=== PATIENT | male | born 1950 | race Asian ===

== ENCOUNTER 2017-11-19 07:21 | Day surgery (SDC) | payer OTHER, BC ==
[2017-11-18 11:52] VITALS: BMI 21.9
[2017-11-19] MEDS: CYCLOPENTOLATE 2% OPHTH SOLN 2 ML BOTTLE ONE ×3 (08:40→08:50)
[2017-11-19] MEDS: PHENYLEPHRINE 2.5% OPHTH SOLN 15 ML BOTTLE ONE ×3 (08:40→08:50)
[2017-11-19] MEDS: CIPROFLOXACIN 0.3% EYE DROPS 5 ML BOTTLE ONE ×3 (08:40→08:50)
[2017-11-19] MEDS: TROPICAMIDE 1% OPHTH SOLN 15 ML BOTTLE ONE ×3 (08:40→08:50)
[2017-11-19 08:46] VITALS: TEMP 97.7
[2017-11-19] MEDS ORDERED: NEO/POLYMYX B SULF/DEXAMETH OPHTHALMIC 5ML BOTTLE ONE (09:45)
[2017-11-19] MEDS ORDERED: CARBACHOL 0.01% INTRA-OCULAR 1.5 ML VIAL ONE (09:45)
[2017-11-19] MEDS ORDERED: MIDAZOLAM HCL 2 MG/2 ML SINGLE DOSE VIAL ONE (09:45)
[2017-11-19] MEDS ORDERED: BSS (NA/CA/MG/K) BALANCED SALT SOLUTION OPHTH SOLN 15 ML BOTTLE ONE (09:45)
[2017-11-19 11:08] VITALS: BP 135/75; PULSE 69
--- NOTE | 2017-11-19 11:46 | OP ---
DATE OF OPERATION: 11/19/2017 OPERATIVE PROCEDURE: Lens Phacoemulsification with Posterior Chamber Intraocular Lens Placement, Right Eye PREOPERATIVE DIAGNOSIS: Visually Significant Cataract of Right Eye POSTOPERATIVE DIAGNOSIS: Visually Significant Cataract of Right Eye SURGEON: Sonu Londono M.D. ANESTHESIA: MAC ANESTHESIOLOGIST: PROCEDURE: The patient was brought to the operating room and placed under monitored anesthesia care by Anesthesia. A drop of Tetracaine was then placed over the right eye. The patient was then prepped and draped in the usual sterile manner. A speculum was then placed over the right eye. The eye was then well irrigated with copious amounts of BSS (balanced salt solution). The operating microscope was then moved into position. A paracentesis was performed using a 15 degree blade. At this point 0.5 mL of 1% preservative free-lidocaine was injected into the anterior chamber. Amvisc plus was then injected into the anterior chamber. A clear corneal incision was then formed using a 2.2 mm keratome. A capsulorrhexis was then performed in a continuous circular fashion beginning with a cystotome completed with an Utratas forceps. Hydrodissection was then performed using BSS on a cannula. The phaco probe was then introduced through the corneal wound and the cataract was removed using the phaco chop technique. Approximately 3 seconds of absolute phaco time was used. The remaining cortex was then removed using irrigation and aspiration with an I/A probe. The capsule was then filled with regular Amvisc and the capsule was noted to be intact. A previously selected foldable posterior chamber intraocular lens was then injected into the capsule through the corneal wound using a lens injector. It was then dialed into position using a Sinskey hook. The Amvisc was then removed using irrigation and aspiration. Miostat was then injected through the paracentesis to constrict the pupil. The paracentesis and corneal wound were then hydrated and noted to be water tight. A drop of Maxitrol was then placed over the eye. The speculum was removed and clear shield was taped over the eye. The patient tolerated the procedure well and there were no surgical complications. The patient was asked to follow up in my office the next day. SONU LONDONO M.D. PATRICK/[id number]
== END 2017-11-19 11:05 | disposition home or self-care (01) ==
LOC: FASU 07:21
PROVIDERS: ATTEND Ophthalmology
PROC: 08RJ3JZ Replacement of Right Lens with Synthetic Substitute, Percutaneous Approach (ICD-10-PCS; principal; 2017-11-19 10:01)
DX: H26.8 Other specified cataract (principal)

== ENCOUNTER 2021-02-14 04:40 | Day surgery (SDC) | payer OTHER, BC ==
[2021-02-13 17:55] VITALS: BMI 21.1
[2021-02-14] MEDS ORDERED: PROPOFOL 20 ML ONE (12:46)
[2021-02-14] MEDS ORDERED: LIDOCAINE HCL/PF 2% SDV 5ML VIAL ONE (12:46)
[2021-02-14] MEDS ORDERED: MIDAZOLAM HCL 2 MG/2 ML SINGLE DOSE VIAL ONE (12:46)
[2021-02-14] MEDS ORDERED: ROCURONIUM BROMIDE 50 MG/5 ML SYRINGE ONE (12:47)
[2021-02-14] MEDS ORDERED: ONDANSETRON 4 MG/2 ML VIAL IVPUSH PRN (13:40)
[2021-02-14] MEDS ORDERED: oxyCODONE HCL 5 MG TABLET PO PRN (13:40)
[2021-02-14] MEDS ORDERED: LACTATED RINGERS SOLUTION 1,000 ML IV SCH (13:45)
[2021-02-14] MEDS ORDERED: NEOSTIGMINE METHYLSULFATE 0.5 MG/ML - 10 ML MDV ONE (13:45)
[2021-02-14 16:35] VITALS: BP 131/71; PULSE 84; TEMP 98.1
== END 2021-02-14 16:05 | disposition home or self-care (01) ==
LOC: JASU-SURG 04:40
PROVIDERS: ATTEND Internal Medicine
PROC: 0BDF8ZX Extraction of Right Lower Lung Lobe, Via Natural or Artificial Opening Endoscopic, Diagnostic (ICD-10-PCS; 2021-02-14)
PROC: 0BBF8ZX Excision of Right Lower Lung Lobe, Via Natural or Artificial Opening Endoscopic, Diagnostic (ICD-10-PCS; principal; 2021-02-14 13:00)
DX: C34.31 Malignant neoplasm of lower lobe, right bronchus or lung (principal)
CPT/HCPCS: 87070; 87102; 87116; 87186; 87205; 87206; 87210; 88104; 88108; 88305-TC; 94760; C9803; U0003; U0005

== ENCOUNTER 2022-05-01 17:55 | Inpatient (IN) | payer OTHER, BC ==
[2022-05-01 19:27] LABS: BASO % 1.9 % (0-2.0); EOS % 0.9 % (0-4.5); HEMATOCRIT 16.1 % (35.4-49); MCHC 28.7 g/dl (32.0-35.9); MEAN CELL VOLUME 66.2 fl (80-96); MEAN PLT VOLUME 7.4 fl (7.5-11.1); MONO % 11.2 % (3.8-10.2); PLATELET COUNT 365 10^3/uL (134-434); RBC 2.43 M/mm3 (4.00-5.60); RDW 23.1 % (11.9-15.9); WHITE BLOOD COUNT 6.5 K/mm3 (4.0-10.0)
[2022-05-01 19:31] LABS: HEMOGLOBIN 4.6 GM/dL (11.7-16.9)
[2022-05-01 19:45] LABS: ALBUMIN 2.7 g/dl (3.4-5.0); BLOOD UREA NITROGEN 28.1 mg/dL (7-18)
[2022-05-01 19:48] LABS: CALCIUM 8.7 mg/dL (8.5-10.1); CREATININE 1.2 mg/dL (0.55-1.3)
[2022-05-01 19:50] LABS: BILIRUBIN,TOTAL 0.4 mg/dL (0.2-1); TOT PROT 7.6 g/dl (6.4-8.2)
[2022-05-01 20:25] LABS: ANISOCYTOSIS 3+; MACROCYTOSIS 0; OVALOCYTE 2+; TARGET CELLS 2+; TEAR DROP CELLS 1+
[2022-05-01] MEDS ORDERED: PANTOPRAZOLE SODIUM 80 MG/200 ML BAG IVPB ONE (22:45)
[2022-05-02] MEDS: D5-NS + 20 MEQ KCL - 20 MEQ/1,000 ML INFUS.BAG IV SCH
[2022-05-02] MEDS: PANTOPRAZOLE SODIUM 80 MG in SODIUM CHLORIDE 100 ML IVPB SCH
[2022-05-02 09:01] LABS: BASO % 1.5 % (0-2.0); EOS % 2.7 % (0-4.5); HEMATOCRIT 23.7 % (35.4-49); HEMOGLOBIN 7.7 GM/dL (11.7-16.9); LYMPH % 15.8 % (8-40); MCH 23.7 pg (25.7-33.7); MCHC 32.4 g/dl (32.0-35.9); MEAN CELL VOLUME 73.1 fl (80-96); MEAN PLT VOLUME 7.9 fl (7.5-11.1); PLATELET COUNT 342 10^3/uL (134-434); RBC 3.24 M/mm3 (4.00-5.60); RDW 24.3 % (11.9-15.9); WHITE BLOOD COUNT 7.6 K/mm3 (4.0-10.0)
[2022-05-02 09:24] LABS: ALBUMIN 2.6 g/dl (3.4-5.0); BILIRUBIN,TOTAL 2.6 mg/dL (0.2-1); CALCIUM 8.6 mg/dL (8.5-10.1); TOT PROT 7.2 g/dl (6.4-8.2)
[2022-05-02] MEDS: PANTOPRAZOLE SODIUM 160 MG in SODIUM CHLORIDE 290 ML IVPB SCH (09:52)
[2022-05-02] MEDS ORDERED: FUROSEMIDE 40 MG/4 ML INJECTABLE VIAL IVPUSH ONE (10:47)
[2022-05-02] MEDS ORDERED: FUROSEMIDE 40 MG/4 ML INJECTABLE VIAL ONE (11:13)
[2022-05-02] MEDS ORDERED: FOLIC ACID 1 MG TABLET (FP) ONE (12:10)
[2022-05-02] MEDS ORDERED: FERROUS SO4 325 MG TABLET (FP) ONE ×2 (12:10→17:27)
[2022-05-02] MEDS: FOLIC ACID 1 MG TABLET (FP) PO SCH (12:13)
[2022-05-02] MEDS: FERROUS SO4 325 MG TABLET (FP) PO SCH ×2 (12:14→17:32)
[2022-05-02 23:50] VITALS: BMI 17.6
[2022-05-03] MEDS: metoPROLOL SUCCINATE 25 MG TAB.SR.24H (FP) PO SCH ×2 (00:33→22:20)
[2022-05-03] MEDS: D5-NS + 20 MEQ KCL - 20 MEQ/1,000 ML INFUS.BAG IV SCH (00:35)
[2022-05-03] MEDS: ATORVASTATIN CA 80 MG TABLET (FP) PO SCH ×2 (00:35→22:20)
[2022-05-03] MEDS: PANTOPRAZOLE SODIUM 160 MG in SODIUM CHLORIDE 290 ML IVPB SCH (06:24)
[2022-05-03] MEDS: PANTOPRAZOLE SODIUM 80 MG in SODIUM CHLORIDE 100 ML IVPB SCH (07:25)
[2022-05-03 08:02] LABS: BASO % 2.3 % (0-2.0); EOS % 2.7 % (0-4.5); HEMOGLOBIN 9.4 GM/dL (11.7-16.9); LYMPH % 15.4 % (8-40); MCHC 32.5 g/dl (32.0-35.9); MEAN CELL VOLUME 73.7 fl (80-96); MEAN PLT VOLUME 7.8 fl (7.5-11.1); MONO % 9.8 % (3.8-10.2); NEUT % 69.8 % (42.8-82.8); PLATELET COUNT 289 10^3/uL (134-434); RBC 3.94 M/mm3 (4.00-5.60); RDW 23.8 % (11.9-15.9); WHITE BLOOD COUNT 7.2 K/mm3 (4.0-10.0)
[2022-05-03 08:05] LABS: INR 1.26 (0.83-1.09); PROTHROMBIN TIME (PATIENT) 14.5 SEC (9.7-13.0)
[2022-05-03 08:08] LABS: ACTIVATED PTT 26.5 SECONDS (25.2-36.5)
[2022-05-03 08:37] LABS: CALCIUM 8.3 mg/dL (8.5-10.1)
[2022-05-03 08:38] LABS: ALBUMIN 2.5 g/dl (3.4-5.0); BLOOD UREA NITROGEN 15.1 mg/dL (7-18)
[2022-05-03 08:40] LABS: URIC ACID 3.9 mg/dL (2.6-7.2)
[2022-05-03 08:42] LABS: TOT PROT 6.8 g/dl (6.4-8.2)
[2022-05-03] MEDS: FERROUS SO4 325 MG TABLET (FP) PO SCH ×3 (08:45→17:00)
[2022-05-03] MEDS: FOLIC ACID 1 MG TABLET (FP) PO SCH (09:49)
[2022-05-03] MEDS: ASCORBIC ACID 250 MG TABLET (FP) PO SCH (09:49)
[2022-05-03] MEDS: PANTOPRAZOLE 40 MG TABLET PO SCH (22:20)
[2022-05-04] MEDS: FOLIC ACID 1 MG TABLET (FP) PO SCH (09:56)
[2022-05-04] MEDS: ASCORBIC ACID 250 MG TABLET (FP) PO SCH (09:56)
[2022-05-04] MEDS: FERROUS SO4 325 MG TABLET (FP) PO SCH ×3 (09:56→16:57)
[2022-05-04] MEDS: PANTOPRAZOLE 40 MG TABLET PO SCH ×2 (09:56→21:42)
[2022-05-04 12:33] LABS: HEMATOCRIT 27.7 % (35.4-49); HEMOGLOBIN 8.8 GM/dL (11.7-16.9); LYMPH % 16.3 % (8-40); MCH 23.6 pg (25.7-33.7); MCHC 31.6 g/dl (32.0-35.9); MEAN CELL VOLUME 74.7 fl (80-96); MEAN PLT VOLUME 7.4 fl (7.5-11.1); MONO % 12.7 % (3.8-10.2); PLATELET COUNT 279 10^3/uL (134-434); RBC 3.71 M/mm3 (4.00-5.60); RDW 25.1 % (11.9-15.9); WHITE BLOOD COUNT 6.1 K/mm3 (4.0-10.0)
[2022-05-04] MEDS: metoPROLOL SUCCINATE 25 MG TAB.SR.24H (FP) PO SCH (21:41)
[2022-05-04] MEDS: ATORVASTATIN CA 80 MG TABLET (FP) PO SCH (21:42)
[2022-05-05] MEDS: FERROUS SO4 325 MG TABLET (FP) PO SCH ×3 (08:15→17:33)
[2022-05-05] MEDS: FOLIC ACID 1 MG TABLET (FP) PO SCH (09:35)
[2022-05-05] MEDS: ASCORBIC ACID 250 MG TABLET (FP) PO SCH (09:35)
[2022-05-05] MEDS: PANTOPRAZOLE 40 MG TABLET PO SCH ×2 (09:35→22:00)
[2022-05-05 10:09] LABS: HEMATOCRIT 28.9 % (35.4-49); HEMOGLOBIN 9.1 GM/dL (11.7-16.9); MCH 23.9 pg (25.7-33.7); MCHC 31.6 g/dl (32.0-35.9); MEAN CELL VOLUME 75.7 fl (80-96); MEAN PLT VOLUME 7.6 fl (7.5-11.1); PLATELET COUNT 284 10^3/uL (134-434); RBC 3.81 M/mm3 (4.00-5.60); RDW 26.2 % (11.9-15.9); WHITE BLOOD COUNT 7.3 K/mm3 (4.0-10.0)
[2022-05-05] MEDS: metoPROLOL SUCCINATE 25 MG TAB.SR.24H (FP) PO SCH (22:00)
[2022-05-05] MEDS: ATORVASTATIN CA 80 MG TABLET (FP) PO SCH (22:00)
[2022-05-06 09:12] VITALS: BP 135/64; PULSE 78; RESP 17; TEMP 98.3
[2022-05-06] MEDS: FOLIC ACID 1 MG TABLET (FP) PO SCH (09:29)
[2022-05-06] MEDS: PANTOPRAZOLE 40 MG TABLET PO SCH (09:29)
[2022-05-06] MEDS: ASCORBIC ACID 250 MG TABLET (FP) PO SCH (09:29)
[2022-05-06] MEDS: FERROUS SO4 325 MG TABLET (FP) PO SCH (09:29)
== END 2022-05-06 12:03 | disposition home or self-care (01) | DRG 812 ==
LOC: JER 17:55 → JERBED 19:14 → J4W 05-02 18:59 → J4S 05-05 20:19
PROVIDERS: ADMIT Internal Medicine; ATTEND Family Medicine
PROC: 30233N1 Transfusion of Nonautologous Red Blood Cells into Peripheral Vein, Percutaneous Approach (ICD-10-PCS; principal; 2022-05-01)
DX: D50.9 Iron deficiency anemia, unspecified (principal); R64 Cachexia; Z68.1 Body mass index [BMI] 19.9 or less, adult; I10 Essential (primary) hypertension; I25.10 Atherosclerotic heart disease of native coronary artery without angina pectoris; E78.5 Hyperlipidemia, unspecified; M06.9 Rheumatoid arthritis, unspecified; R79.89 Other specified abnormal findings of blood chemistry; T39.015A Adverse effect of aspirin, initial encounter; T46.6X5A Adverse effect of antihyperlipidemic and antiarteriosclerotic drugs, initial encounter
CPT/HCPCS: 0241U-QW; 36415; 36430; 71045-TC-FY; 71250-TC; 74177-TC; 80053; 82272; 82728; 82784; 83540; 83550; 84155; 84165; 84484; 84550; 85025; 85027; 85384; 85610; 85651; 85730; 86334; 86850; 86900; 86901; 86922; 93005; 93010; 93306-TC; 97116-GP; 97162-GP; 99291; P9058; Q9967

== ENCOUNTER 2022-07-03 14:47 | Inpatient (IN) | payer OTHER, BC ==
[2022-07-03 14:53] VITALS: BMI 17.7
[2022-07-03 15:53] LABS: BASO % 1.9 % (0-2.0); EOS % 1.1 % (0-4.5); HEMATOCRIT 22.8 % (35.4-49); HEMOGLOBIN 7.1 GM/dL (11.7-16.9); LYMPH % 19.2 % (8-40); MCH 26.3 pg (25.7-33.7); MCHC 31.2 g/dl (32.0-35.9); MEAN CELL VOLUME 84.5 fl (80-96); MEAN PLT VOLUME 7.1 fl (7.5-11.1); MONO % 11.5 % (3.8-10.2); NEUT % 66.3 % (42.8-82.8); PLATELET COUNT 384 10^3/uL (134-434); RDW 16.1 % (11.9-15.9); WHITE BLOOD COUNT 6.8 K/mm3 (4.0-10.0)
[2022-07-03 16:04] LABS: INR 1.2 (0.83-1.09); PROTHROMBIN TIME (PATIENT) 13.9 SEC (9.7-13.0)
[2022-07-03 16:06] LABS: ACTIVATED PTT 27.7 SECONDS (25.2-36.5)
[2022-07-03 16:14] LABS: CALCIUM 8.7 mg/dL (8.5-10.1)
[2022-07-03 16:15] LABS: ALBUMIN 2.7 g/dl (3.4-5.0); BLOOD UREA NITROGEN 22.7 mg/dL (7-18)
[2022-07-03 16:19] LABS: BILIRUBIN,TOTAL 0.2 mg/dL (0.2-1)
[2022-07-03 16:20] LABS: TOT PROT 7.7 g/dl (6.4-8.2)
[2022-07-03] MEDS ORDERED: PANTOPRAZOLE SODIUM 80 MG in SODIUM CHLORIDE 100 ML IVPB SCH (18:00)
[2022-07-03] MEDS ORDERED: D5-1/2NS+20 MEQ KCL - 20 MEQ/1,000 ML INFUS.BAG IV SCH (18:00)
[2022-07-03] MEDS ORDERED: PANTOPRAZOLE SODIUM 160 MG in SODIUM CHLORIDE 290 ML IVPB SCH (18:15)
[2022-07-03 21:17] VITALS: RESP 18
[2022-07-03] MEDS ORDERED: ATORVASTATIN CA 80 MG TABLET (FP) PO SCH (22:00)
[2022-07-03] MEDS ORDERED: METOPROLOL TARTRATE 50 MG TABLET (FP) PO SCH (22:00)
[2022-07-04 09:21] LABS: BASO % 2.1 % (0-2.0); EOS % 4.4 % (0-4.5); HEMATOCRIT 29.2 % (35.4-49); HEMOGLOBIN 9.5 GM/dL (11.7-16.9); LYMPH % 18.2 % (8-40); MCH 27.6 pg (25.7-33.7); MCHC 32.6 g/dl (32.0-35.9); MEAN CELL VOLUME 84.6 fl (80-96); MEAN PLT VOLUME 7.2 fl (7.5-11.1); MONO % 10.8 % (3.8-10.2); NEUT % 64.5 % (42.8-82.8); PLATELET COUNT 362 10^3/uL (134-434); RBC 3.45 M/mm3 (4.00-5.60); RDW 15.3 % (11.9-15.9); WHITE BLOOD COUNT 6.2 K/mm3 (4.0-10.0)
[2022-07-04 09:53] LABS: BILIRUBIN,TOTAL 0.7 mg/dL (0.2-1)
[2022-07-04 09:54] LABS: TOT PROT 6.9 g/dl (6.4-8.2)
[2022-07-04 09:59] LABS: ALBUMIN 2.5 g/dl (3.4-5.0); BLOOD UREA NITROGEN 19.8 mg/dL (7-18)
[2022-07-04 10:01] LABS: CALCIUM 8.6 mg/dL (8.5-10.1)
[2022-07-04 10:02] LABS: CREATININE 0.9 mg/dL (0.55-1.3)
[2022-07-04 13:17] VITALS: BP 96/58; PULSE 82; TEMP 97.7
[2022-07-04] MEDS ORDERED: PANTOPRAZOLE 40 MG TABLET PO SCH (22:00)
== END 2022-07-04 15:00 | disposition home or self-care (01) | DRG 812 ==
LOC: JER 14:47 → JERBED 16:39 → OBSVTOIN 17:52 → J6S 22:55
PROVIDERS: ADMIT Family Medicine; ATTEND Family Medicine
PROC: 30233N1 Transfusion of Nonautologous Red Blood Cells into Peripheral Vein, Percutaneous Approach (ICD-10-PCS; principal; 2022-07-03)
DX: D64.9 Anemia, unspecified (principal); I25.10 Atherosclerotic heart disease of native coronary artery without angina pectoris; I10 Essential (primary) hypertension; Z95.5 Presence of coronary angioplasty implant and graft
CPT/HCPCS: 36415; 36430; 80053; 82728; 83540; 83550; 84443; 85025; 85610; 85730; 86850; 86900; 86901; 86922; 93005; 93010; 99285-25; C9803-CS; G0378; P9058; U0003; U0005

== ENCOUNTER 2023-10-06 11:29 | Inpatient (IN) | payer OTHER, BC ==
[2023-10-06 12:29] LABS: BASO % 0.8 % (0-2.0); EOS % 0.6 % (0-4.5); HEMATOCRIT 31.2 % (35.4-49); HEMOGLOBIN 9.7 GM/dL (11.7-16.9); LYMPH % 9.7 % (8-40); MCH 22.9 pg (25.7-33.7); MEAN CELL VOLUME 73.8 fl (80-96); MEAN PLT VOLUME 6.7 fl (7.5-11.1); MONO % 6.7 % (3.8-10.2); NEUT % 82.2 % (42.8-82.8); PLATELET COUNT 509 10^3/uL (134-434); RBC 4.23 M/mm3 (4.00-5.60); RDW 19.4 % (11.9-15.9); WHITE BLOOD COUNT 11.2 K/mm3 (4.0-10.0)
[2023-10-06 12:35] LABS: INR 1.17 (0.83-1.09); PROTHROMBIN TIME (PATIENT) 13.4 SEC (9.7-13.0)
[2023-10-06 12:37] LABS: ACTIVATED PTT 29.9 SECONDS (25.2-36.5)
[2023-10-06 12:48] LABS: POTASSIUM 4.2 mmol/L (3.5-5.1)
[2023-10-06 12:54] LABS: CREATININE 0.9 mg/dL (0.55-1.3)
[2023-10-06 12:56] LABS: BILIRUBIN,TOTAL 0.5 mg/dL (0.2-1); TOT PROT 8.8 g/dl (6.4-8.2)
[2023-10-06] MEDS ORDERED: PIPERACILLIN/TAZOB 4.5 GM 4.5 GM in DEXTROSE 5%-WATER 100 ML IVPB ONE (13:43)
[2023-10-06] MEDS ORDERED: ALBUTEROL SO4 2.5/IPRATROPIUM 0.5 INH SOL 3 ML VIAL.NEB. NEB ONE (14:39)
[2023-10-06] MEDS ORDERED: methylPREDNISolone NA SUCC 40 MG/1 ML VIAL ONE (14:39)
[2023-10-06] MEDS ORDERED: VANCOMYCIN 1 GRAM (PRE-DOCKED) 1,000 MG/250 ML BAG IVPB ONE (14:39)
[2023-10-06] MEDS: VANCOMYCIN 1,000 MG in DEXTROSE 5%-WATER - 250 ML IVPB ONE (14:51)
[2023-10-06] MEDS: methylPREDNISolone NA SUCC 40 MG/1 ML VIAL IVPUSH SCH (14:51)
[2023-10-06] MEDS: ALBUTEROL SO4 2.5/IPRATROPIUM 0.5 INH SOL 3 ML VIAL.NEB. NEB SCH (15:16)
[2023-10-06] MEDS: ALBUTEROL SO4 0.083% IH SOL 2.5 MG/3 ML VIAL.NEB. NEB SCH (17:48)
[2023-10-06] MEDS ORDERED: ALBUTEROL SO4 0.083% IH SOL 2.5 MG/3 ML VIAL.NEB. NEB PRN (17:59)
[2023-10-06] MEDS: PIPERACILLIN/TAZOB 3.375 GM 3.375 GM in DEXTROSE 5%-WATER - 50 ML IVPB SCH (18:18)
[2023-10-06] MEDS: ASPIRIN COATED 81 MG TABLET.EC PO SCH (20:48)
[2023-10-06] MEDS: DOXYCYCLINE INJECTION 100 MG in DEXTROSE 5%-WATER 100 ML IVPB SCH (21:09)
[2023-10-06] MEDS: ACETAMINOPHEN 1000 MG/100 ML BAG IVPB ONE (22:02)
[2023-10-06] MEDS: MAG HYDROX/AL HYDROX/SIMETH 30 ML UNIT-DOSE CUP PO PRN (22:09)
[2023-10-07] MEDS ORDERED: MAG HYDROX/AL HYDROX/SIMETH -MYLANTA- ORAL SUSPENSION PO SCH
[2023-10-07 07:35] LABS: BASO % 0.1 % (0-2.0); HEMATOCRIT 26.1 % (35.4-49); HEMOGLOBIN 8.3 GM/dL (11.7-16.9); LYMPH % 9.8 % (8-40); MCH 23.4 pg (25.7-33.7); MCHC 31.7 g/dl (32.0-35.9); MEAN CELL VOLUME 73.9 fl (80-96); MEAN PLT VOLUME 7.1 fl (7.5-11.1); MONO % 1.4 % (3.8-10.2); NEUT % 88.7 % (42.8-82.8); PLATELET COUNT 455 10^3/uL (134-434); RBC 3.53 M/mm3 (4.00-5.60); RDW 18.8 % (11.9-15.9); WHITE BLOOD COUNT 7.7 K/mm3 (4.0-10.0)
[2023-10-07 07:44] LABS: POTASSIUM 4.7 mmol/L (3.5-5.1)
[2023-10-07 07:46] LABS: ALBUMIN 1.7 g/dl (3.4-5.0); CALCIUM 8.4 mg/dL (8.5-10.1); MAGNESIUM 2.3 mg/dL (1.8-2.4)
[2023-10-07 07:49] LABS: PHOSPHOROUS 4.7 mg/dL (2.5-4.9)
[2023-10-07 07:51] LABS: BILIRUBIN,TOTAL 0.3 mg/dL (0.2-1); CHOLESTEROL 83 mg/dL (50-200); TOT PROT 7.9 g/dl (6.4-8.2)
[2023-10-07 07:53] LABS: LDL CHOLESTEROL (ONLY SJRH) 50 mg/dL (5-100)
[2023-10-07 07:55] LABS: HDL CHOLESTEROL 27 mg/dL (40-60)
[2023-10-07] MEDS: IRON SUCROSE INJECTION 200 MG in SODIUM CHLORIDE 100 ML IVPB ONE (09:25)
[2023-10-07] MEDS: PANTOPRAZOLE 40 MG TABLET PO SCH (09:40)
[2023-10-08 07:17] LABS: HEMATOCRIT 24.6 % (35.4-49); HEMOGLOBIN 7.6 GM/dL (11.7-16.9); MCH 22.9 pg (25.7-33.7); MCHC 31.1 g/dl (32.0-35.9); MEAN CELL VOLUME 73.8 fl (80-96); MEAN PLT VOLUME 7.1 fl (7.5-11.1); PLATELET COUNT 447 10^3/uL (134-434); RBC 3.33 M/mm3 (4.00-5.60); WHITE BLOOD COUNT 18.4 K/mm3 (4.0-10.0)
[2023-10-08 07:36] LABS: POTASSIUM 4.8 mmol/L (3.5-5.1)
[2023-10-08 07:50] LABS: CALCIUM 8.6 mg/dL (8.5-10.1)
[2023-10-08 07:51] LABS: ALBUMIN 1.8 g/dl (3.4-5.0); BILIRUBIN,TOTAL 0.2 mg/dL (0.2-1); BLOOD UREA NITROGEN 35.3 mg/dL (7-18); TOT PROT 7.5 g/dl (6.4-8.2)
[2023-10-08 07:52] LABS: CREATININE 0.9 mg/dL (0.55-1.3)
[2023-10-08 08:49] LABS: ANISOCYTOSIS 0; MACROCYTOSIS 0
[2023-10-08] MEDS: FERROUS SO4 325 MG TABLET (FP) PO SCH (10:07)
[2023-10-08] MEDS: FOLIC ACID 1 MG TABLET (FP) PO SCH (10:07)
[2023-10-08] MEDS: ASCORBIC ACID 500 MG TABLET (FP) PO SCH (10:07)
[2023-10-08] MEDS: FUROSEMIDE 40 MG/4 ML INJECTABLE VIAL IVPUSH ONE (15:54)
[2023-10-08] MEDS ORDERED: SODIUM CHLORIDE 500 ML IV STA (20:00)
[2023-10-08] MEDS: SODIUM CHLORIDE 500 ML IV STA (21:27)
[2023-10-09 07:23] LABS: HEMATOCRIT 29.5 % (35.4-49); HEMOGLOBIN 9.5 GM/dL (11.7-16.9); MCH 24.1 pg (25.7-33.7); MCHC 32.1 g/dl (32.0-35.9); MEAN CELL VOLUME 75.2 fl (80-96); PLATELET COUNT 452 10^3/uL (134-434); RBC 3.92 M/mm3 (4.00-5.60); RDW 18.6 % (11.9-15.9); WHITE BLOOD COUNT 18.4 K/mm3 (4.0-10.0)
[2023-10-09 07:40] LABS: POTASSIUM 4.9 mmol/L (3.5-5.1)
[2023-10-09 07:44] LABS: ALBUMIN 1.9 g/dl (3.4-5.0); CALCIUM 8.5 mg/dL (8.5-10.1)
[2023-10-09 07:45] LABS: BLOOD UREA NITROGEN 40.2 mg/dL (7-18)
[2023-10-09 07:49] LABS: BILIRUBIN,TOTAL 0.4 mg/dL (0.2-1); TOT PROT 7.4 g/dl (6.4-8.2)
[2023-10-09 08:56] LABS: ANISOCYTOSIS 1+; MACROCYTOSIS 0
[2023-10-09 09:38] LABS: PLATELET ESTIMATE ADEQUATE
[2023-10-09] MEDS: ACETAMINOPHEN 1000 MG/100 ML BAG IVPB PRN (23:17)
[2023-10-10 07:47] LABS: HEMATOCRIT 30.7 % (35.4-49); HEMOGLOBIN 9.7 GM/dL (11.7-16.9); MCH 23.7 pg (25.7-33.7); MCHC 31.7 g/dl (32.0-35.9); MEAN CELL VOLUME 74.8 fl (80-96); PLATELET COUNT 492 10^3/uL (134-434); RDW 18.5 % (11.9-15.9); WHITE BLOOD COUNT 16.2 K/mm3 (4.0-10.0)
[2023-10-10 08:01] LABS: POTASSIUM 5.1 mmol/L (3.5-5.1)
[2023-10-10 08:09] LABS: BLOOD UREA NITROGEN 39.3 mg/dL (7-18); CALCIUM 8.6 mg/dL (8.5-10.1)
[2023-10-10 08:10] LABS: CREATININE 0.9 mg/dL (0.55-1.3)
[2023-10-10 08:12] LABS: BILIRUBIN,TOTAL 0.4 mg/dL (0.2-1); TOT PROT 7.7 g/dl (6.4-8.2)
[2023-10-10 12:43] LABS: PH,URINE 6.5 (5.0-8.0); URINE APPEARANCE CLEAR; URINE BILIRUBIN NEGATIVE (NEGATIVE); URINE COLOR YELLOW; URINE GLUCOSE (UA) NEGATIVE (NEGATIVE); URINE KETONE NEGATIVE (NEGATIVE); URINE LEUK ESTERASE NEGATIVE (NEGATIVE); URINE NITRITE NEGATIVE (NEGATIVE); URINE PROTEIN TRACE (NEGATIVE); URINE UROBILINOGEN 0.2 mg/dL (0.2-1.0)
[2023-10-10] MEDS: NYSTATIN 500,000 UNITS/5 ML SUSPENSION PO SCH (13:56)
[2023-10-11 08:12] LABS: POTASSIUM 5.2 mmol/L (3.5-5.1)
[2023-10-11 08:16] LABS: ALBUMIN 2.2 g/dl (3.4-5.0); BLOOD UREA NITROGEN 41.7 mg/dL (7-18)
[2023-10-11 08:17] LABS: HEMATOCRIT 31.1 % (35.4-49); HEMOGLOBIN 9.8 GM/dL (11.7-16.9); MCH 23.8 pg (25.7-33.7); MCHC 31.5 g/dl (32.0-35.9); MEAN CELL VOLUME 75.4 fl (80-96); MEAN PLT VOLUME 6.9 fl (7.5-11.1); PLATELET COUNT 496 10^3/uL (134-434); RBC 4.12 M/mm3 (4.00-5.60); RDW 19.3 % (11.9-15.9); WHITE BLOOD COUNT 13.9 K/mm3 (4.0-10.0)
[2023-10-11 08:21] LABS: BILIRUBIN,TOTAL 0.5 mg/dL (0.2-1); TOT PROT 7.6 g/dl (6.4-8.2)
[2023-10-11] MEDS ORDERED: PIPERACILLIN/TAZOBACTAM 3.375 GM VIAL IVPB ONE (09:03)
[2023-10-11 09:46] LABS: ANISOCYTOSIS 3+; MACROCYTOSIS 0
[2023-10-11] MEDS: methylPREDNISolone NA SUCC 40 MG/1 ML VIAL IVPUSH SCH (22:48)
[2023-10-12 06:09] LABS: MAGNESIUM 2.1 mg/dL (1.8-2.4); POTASSIUM 4.8 mmol/L (3.5-5.1)
[2023-10-12 08:03] LABS: POTASSIUM 4.9 mmol/L (3.5-5.1)
[2023-10-12 08:05] LABS: CALCIUM 8.5 mg/dL (8.5-10.1)
[2023-10-12 08:06] LABS: ALBUMIN 2.2 g/dl (3.4-5.0); BLOOD UREA NITROGEN 40.7 mg/dL (7-18)
[2023-10-12 08:11] LABS: BILIRUBIN,TOTAL 0.5 mg/dL (0.2-1)
[2023-10-12 08:20] LABS: HEMATOCRIT 31.9 % (35.4-49); HEMOGLOBIN 10.2 GM/dL (11.7-16.9); MCH 24.1 pg (25.7-33.7); MCHC 31.9 g/dl (32.0-35.9); MEAN CELL VOLUME 75.5 fl (80-96); MEAN PLT VOLUME 6.8 fl (7.5-11.1); PLATELET COUNT 472 10^3/uL (134-434); RBC 4.22 M/mm3 (4.00-5.60); RDW 19.3 % (11.9-15.9); WHITE BLOOD COUNT 15.3 K/mm3 (4.0-10.0)
[2023-10-12 09:35] LABS: ANISOCYTOSIS 0; MACROCYTOSIS 0
[2023-10-13] MEDS: PHENAZOPYRIDINE HCL 100 MG TABLET (FP) PO ONE (15:09)
[2023-10-14 07:20] LABS: HEMATOCRIT 30.4 % (35.4-49); HEMOGLOBIN 9.6 GM/dL (11.7-16.9); MCH 24.5 pg (25.7-33.7); MCHC 31.7 g/dl (32.0-35.9); MEAN CELL VOLUME 77.4 fl (80-96); MEAN PLT VOLUME 6.7 fl (7.5-11.1); PLATELET COUNT 494 10^3/uL (134-434); RBC 3.92 M/mm3 (4.00-5.60); RDW 20.5 % (11.9-15.9); WHITE BLOOD COUNT 15.1 K/mm3 (4.0-10.0)
[2023-10-14 07:27] LABS: POTASSIUM 5.5 mmol/L (3.5-5.1)
[2023-10-14 07:31] LABS: ALBUMIN 2.1 g/dl (3.4-5.0); BLOOD UREA NITROGEN 43.8 mg/dL (7-18); CALCIUM 8.9 mg/dL (8.5-10.1)
[2023-10-14 07:36] LABS: BILIRUBIN,TOTAL 0.5 mg/dL (0.2-1); TOT PROT 6.7 g/dl (6.4-8.2)
[2023-10-15 08:05] LABS: BASO % 0.2 % (0-2.0); HEMOGLOBIN 10.2 GM/dL (11.7-16.9); LYMPH % 7.3 % (8-40); MCH 25.4 pg (25.7-33.7); MCHC 32.7 g/dl (32.0-35.9); MEAN CELL VOLUME 77.6 fl (80-96); MEAN PLT VOLUME 6.6 fl (7.5-11.1); MONO % 5.2 % (3.8-10.2); NEUT % 87.3 % (42.8-82.8); PLATELET COUNT 498 10^3/uL (134-434); RDW 20.3 % (11.9-15.9); WHITE BLOOD COUNT 15.4 K/mm3 (4.0-10.0)
[2023-10-15 08:17] LABS: POTASSIUM 5.4 mmol/L (3.5-5.1)
[2023-10-15 08:22] LABS: ALBUMIN 2.4 g/dl (3.4-5.0); BLOOD UREA NITROGEN 42.6 mg/dL (7-18); CALCIUM 9.3 mg/dL (8.5-10.1)
[2023-10-15 08:25] LABS: CREATININE 0.8 mg/dL (0.55-1.3)
[2023-10-15 08:26] LABS: BILIRUBIN,TOTAL 0.7 mg/dL (0.2-1); TOT PROT 7.6 g/dl (6.4-8.2)
[2023-10-15] MEDS ORDERED: PIPERACILLIN/TAZOBACTAM 3.375 GM VIAL IVPB ONE (09:42)
[2023-10-15] MEDS: FUROSEMIDE 40 MG/4 ML INJECTABLE VIAL IVPUSH ONE (12:51)
[2023-10-15] MEDS: IRON SUCROSE INJECTION 200 MG in SODIUM CHLORIDE 100 ML IVPB ONE (15:43)
[2023-10-15] MEDS: methylPREDNISolone NA SUCC 40 MG/1 ML VIAL IVPUSH SCH (18:20)
[2023-10-16] MEDS: SODIUM ZIRCONIUM CYCLOSILICATE (LOKELMA) 5 GM PACKET PO SCH (09:56)
[2023-10-16 16:28] VITALS: BMI 18.3
[2023-10-16] MEDS ORDERED: PIPERACILLIN/TAZOBACTAM 3.375 GM VIAL IVPB ONE (17:07)
[2023-10-16] MEDS: ALPRAZolam 0.25 MG TABLET PO PRN (21:09)
[2023-10-17 12:34] LABS: HEMATOCRIT 31.1 % (35.4-49); HEMOGLOBIN 9.5 GM/dL (11.7-16.9); MCH 24.3 pg (25.7-33.7); MCHC 30.5 g/dl (32.0-35.9); MEAN CELL VOLUME 79.9 fl (80-96); MEAN PLT VOLUME 6.6 fl (7.5-11.1); PLATELET COUNT 494 10^3/uL (134-434); RDW 22.3 % (11.9-15.9); WHITE BLOOD COUNT 15.9 K/mm3 (4.0-10.0)
[2023-10-17 12:54] LABS: POTASSIUM 5.2 mmol/L (3.5-5.1)
[2023-10-17 12:56] LABS: CALCIUM 8.7 mg/dL (8.5-10.1)
[2023-10-17 12:57] LABS: ALBUMIN 2.1 g/dl (3.4-5.0); BLOOD UREA NITROGEN 48.8 mg/dL (7-18)
[2023-10-17 13:00] LABS: CREATININE 0.9 mg/dL (0.55-1.3)
[2023-10-17 13:01] LABS: BILIRUBIN,TOTAL 0.6 mg/dL (0.2-1); TOT PROT 6.7 g/dl (6.4-8.2)
[2023-10-17 13:33] LABS: ANISOCYTOSIS 3+; MACROCYTOSIS 0
[2023-10-18] MEDS: SODIUM ZIRCONIUM CYCLOSILICATE (LOKELMA) 5 GM PACKET PO SCH (09:21)
[2023-10-19 03:56] VITALS: RESP 20
[2023-10-19 08:44] LABS: POTASSIUM 4.5 mmol/L (3.5-5.1)
[2023-10-19 08:50] LABS: HEMATOCRIT 30.1 % (35.4-49); HEMOGLOBIN 9.3 GM/dL (11.7-16.9); MCH 24.9 pg (25.7-33.7); MEAN CELL VOLUME 80.3 fl (80-96); MEAN PLT VOLUME 6.5 fl (7.5-11.1); PLATELET COUNT 444 10^3/uL (134-434); RBC 3.75 M/mm3 (4.00-5.60); RDW 23.9 % (11.9-15.9); WHITE BLOOD COUNT 14.5 K/mm3 (4.0-10.0)
[2023-10-19 09:09] LABS: CALCIUM 9.1 mg/dL (8.5-10.1)
[2023-10-19 09:10] LABS: ALBUMIN 2.2 g/dl (3.4-5.0)
[2023-10-19 09:13] LABS: CREATININE 0.8 mg/dL (0.55-1.3)
[2023-10-19 09:15] LABS: BILIRUBIN,TOTAL 0.6 mg/dL (0.2-1); TOT PROT 6.5 g/dl (6.4-8.2)
[2023-10-19] MEDS: ENOXAPARIN NA (PORCINE) 40 MG/0.4 ML DISP.SYRIN SQ SCH (09:21)
[2023-10-19 10:52] LABS: ANISOCYTOSIS 3+; MACROCYTOSIS 0; TARGET CELLS 1+
[2023-10-19 19:34] VITALS: BP 120/81; PULSE 98; TEMP 98.2
[2023-10-19] MEDS: ALPRAZolam 0.25 MG TABLET PO PRN (20:23)
[2023-10-19] MEDS: ESCITALOPRAM OXALATE 10 MG TABLET PO SCH (21:06)
== END 2023-10-19 21:30 | disposition short-term general hospital (02) | DRG 180 ==
LOC: JER 11:29 → JERBED 14:49 → J4W 15:53
PROVIDERS: ADMIT Family Medicine; ATTEND Family Medicine
PROC: 30233N1 Transfusion of Nonautologous Red Blood Cells into Peripheral Vein, Percutaneous Approach (ICD-10-PCS; principal; 2023-10-08)
DX: C34.31 Malignant neoplasm of lower lobe, right bronchus or lung (principal); E43 Unspecified severe protein-calorie malnutrition; J18.9 Pneumonia, unspecified organism; J44.0 Chronic obstructive pulmonary disease with (acute) lower respiratory infection; J44.1 Chronic obstructive pulmonary disease with (acute) exacerbation; J93.83 Other pneumothorax; R64 Cachexia; Z68.1 Body mass index [BMI] 19.9 or less, adult; B37.89 Other sites of candidiasis; I25.10 Atherosclerotic heart disease of native coronary artery without angina pectoris; I10 Essential (primary) hypertension; E78.5 Hyperlipidemia, unspecified; D64.9 Anemia, unspecified; Z95.5 Presence of coronary angioplasty implant and graft; I27.20 Pulmonary hypertension, unspecified; M06.8A Other specified rheumatoid arthritis, other specified site; I71.40 Abdominal aortic aneurysm, without rupture, unspecified; F41.9 Anxiety disorder, unspecified; D50.9 Iron deficiency anemia, unspecified; R62.7 Adult failure to thrive; R74.8 Abnormal levels of other serum enzymes; E87.5 Hyperkalemia; Z85.118 Personal history of other malignant neoplasm of bronchus and lung
CPT/HCPCS: 0241U-QW; 36415; 36430; 71045-TC-FY; 71250-TC; 71275-TC; 76705-TC; 80053; 80061; 81003; 82272; 82728; 82962; 83036; 83540; 83550; 83735; 83880; 84100; 84132; 84443; 84466; 84484; 85025; 85027; 85610; 85730; 86140; 86709; 86850; 86900; 86901; 86922; 87040; 87081; 87086; 87340; 87522; 87899; 93005; 93010; 93306-TC; 94640; 94761; 97116-GP; 97161-GP; 99285-25; G0480; J0131; J1756; P9058; Q9967